=== PATIENT | male | born 1980 | race Native Hawaiian/Other Pacific Islander ===

== ENCOUNTER 2017-02-25 23:45 | Inpatient (IN) | payer OTHER ==
[2017-02-26] MEDS ORDERED: ONDANSETRON 4 MG/2ML 2 ML VIAL ONE (00:42)
[2017-02-26] MEDS ORDERED: ACETAMINOPHEN 500 MG TABLET ONE (00:42)
[2017-02-26] MEDS ORDERED: SODIUM CHLORIDE 0.9% 1,000 ML ONE ×2 (00:42→02:49)
[2017-02-26 01:01] LABS: ABSOLUTE NEUTROPHIL COUNT 19.2 K/mm3 (1.8-7.7); BASO % 0.1 % (0.2-1.0); EOS # 0.3 (0.0-0.5); EOS % 1.3 % (0.9-2.9); HEMATOCRIT 31.3 % (32.0-52.0); HEMOGLOBIN 10.2 gm/l (14.0-18.0); IMM NEUT # 0.1 K/mm3 (0-0.2); IMM NEUT% 0.5 % (0-1); LYMPH # 1.1 (1.0-4.8); MEAN CELL VOLUME 86.2 fl (80.0-94.0); MEAN CORPUSCULAR HEMOGLOBIN 28.1 pg (27.0-31.0); MEAN CORPUSCULAR HGB CONC 32.6 g/dl (33.0-37.0); MEAN PLATELET VOLUME 9.7 fl (7.4-10.4); MONO # 0.9 (0.0-0.8); MONO % 4.3 % (4-12); NEUT % 88.8 % (43-75); PLATELET COUNT 364 K/mm3 (130-400); RED CELL DISTRIBUTION WIDTH 13.2 % (11.5-14.5)
[2017-02-26 01:23] LABS: ALB/GLOB RATIO 0.6 (>1.0); ALBUMIN 2.9 gm/dL (3.5-5.7); CALCIUM 6.2 mg/dL (8.6-10.3); MAGNESIUM 1.2 mg/dL (1.9-2.7)
[2017-02-26 01:45] LABS: BAND 3 % (0-10); BASOPHIL 0 % (0-1); EOSINOPHIL 0 % (1-3); LYMPHOCYTE 4 % (15-45); MONOCYTE 2 % (4-12); NEUTROPHILS 91 % (43-75); PLATELET ESTIMATE NORMAL (NORMAL); TOTAL CELLS COUNTED 100
[2017-02-26 03:10] LABS: SPECIFIC GRAVITY 1.015 (1.001-1.030); URINE BILIRUBIN NEGATIVE (NEGATIVE); URINE BLOOD 2+ (NEGATIVE); URINE GLUCOSE (UA) 2+ (NEGATIVE); URINE LEUKOCYTE ESTERASE NEGATIVE (NEGATIVE); URINE NITRITE NEGATIVE (NEGATIVE); URINE PROTEIN 2+ (NEGATIVE); URINE UROBILINOGEN NORMAL (0-1 mg/dl)
[2017-02-26 03:11] LABS: URINE APPEARANCE HAZY; URINE COLOR LIGHT YELLOW
[2017-02-26 03:20] LABS: URINE BACTERIA 0; URINE CASTS 1-3 HYALINE /lpf
[2017-02-26] MEDS ORDERED: SODIUM CHLORIDE 0.9% 100 ML IV ONE (03:48)
[2017-02-26] MEDS ORDERED: CEFTRIAXONE SODIUM 1 G VIAL ONE (03:48)
[2017-02-26] MEDS: MAGNESIUM SULFATE 1 G/100 ML 100 ML IV SCH ×2 (04:55→06:02)
[2017-02-26] MEDS ORDERED: SODIUM CHLORIDE 0.9% FLUSH 10 ML ONE ×4 (04:57→06:52)
[2017-02-26] MEDS ORDERED: IV START KIT ONE (05:04)
[2017-02-26] MEDS ORDERED: BLISTEX LIPSTICK 1 EACH TP PRN (06:53)
[2017-02-26] MEDS ORDERED: BISACODYL 10 MG SUP PR PRN (06:53)
[2017-02-26] MEDS ORDERED: BISACODYL 5 MG TABLET.EC PO PRN (06:53)
[2017-02-26] MEDS ORDERED: MAGNESIUM HYDROXIDE 30 ML UDCUP PO PRN (06:53)
[2017-02-26] MEDS ORDERED: MENTHOL/CETYLPYRD 1 EACH LOZENGE PO PRN (06:53)
[2017-02-26] MEDS ORDERED: SODIUM CHLORIDE 0.9% 100 ML IV PRN (06:53)
--- NOTE | 2017-02-26 08:36 | RAD ---
02/26/2017 8:30 AM CHEST - 2 VIEWS History: Weakness Comparison: 07/22/2016 Findings: Two views of the chest are obtained. The lungs are clear with out effusion or pneumothorax. The cardiomediastinal silhouette is unremarkable.. The osseous structures are intact.. IMPRESSION: No acute intrathoracic process.
[2017-02-26] MEDS ORDERED: Magnesium Oxide 400 MG TABLET PO SCH (09:00)
[2017-02-26] MEDS: METOPROLOL TARTRATE 25 MG TABLET PO SCH ×2 (09:20→20:04)
[2017-02-26] MEDS: CALCIUM CARBONATE 500 MG TAB.CHEW PO SCH ×3 (09:20→20:04)
[2017-02-26] MEDS: AMLODIPINE BESYLATE 5 MG TABLET PO SCH (09:20)
[2017-02-26] MEDS: DOCUSATE SODIUM 100 MG CAPSULE PO SCH ×2 (09:20→20:05)
[2017-02-26] MEDS: ENOXAPARIN SODIUM 30 MG/0.3 ML SYRINGE SUB-Q SCH (09:21)
[2017-02-26] MEDS: INSULIN ASPART (DOSE) 100 UNITS/1 ML SUB-Q PRN ×2 (09:54→17:22)
--- NOTE | 2017-02-26 12:04 | HP ---
BENJAMIN GARCIA [id number] HISTORY OF PRESENT ILLNESS: The patient is a 36-year-old male with a history of diabetes, hypertension, and toe amputations who has reported feeling weaker over the last 7 days. He has noted feeling dizzy. He has not had vomiting. He has had no falls. He had actually talked with Dr. Holcomb, about possible need for dialysis, but had not wanted to pursue this. On further evaluation, he had a creatinine of 4.4 on 12/30/2016, and a creatinine of 4.6 on 02/06/2017. He denies fevers, or chills only that he is feeling somewhat dizzy. PAST MEDICAL HISTORY: Remarkable for: 1. Diabetes type 2 on insulin for the last 8 years. He has previous documentation of poor control with A1c in the region. 2. History of diabetic foot ulcers with amputation. 3. Morbid obesity. 4. Hypertension. 5. Chronic kidney disease. 6. He has had previous documentation of hypothyroidism, but is not on thyroid replacement at this time. PAST SURGICAL HISTORY: Remarkable for: 1. Transmetatarsal amputations. 2. Foot ulcer debridement. ALLERGIES: NO KNOWN DRUG ALLERGIES. MEDICATIONS: Listed as: 1. Lantus 80 units by mouth daily. 2. Lisinopril 20 mg daily. It is not clear if he has stopped this medicine. 3. Simvastatin 20 mg daily. 4. Metformin had been stopped recently. 5. He uses insulin aspart 8 units three times a day with meals. SOCIAL HISTORY: Unemployed. He lives in [place] with his sister. He has a history of smoking, but quit after high school, and reports no alcohol. He goes to [employer] in [place]. He is not . He speaks Chuukese as his primary language. HOBBIES: Include TV, games, exercise, and pets. FAMILY HISTORY: Father in his 60s. Mom in her 70s has diabetes. REVIEW OF SYSTEMS: HEENT: Eyes: Vision is not good. Ears okay. Nose okay. Mouth is okay. Some teeth are missing. Neck: No complaints. Lungs: Breathing is ok. Cardiac: No chest pain. Gastrointestinal: Stomach is ok. No vomiting. Genitourinary: No urinary complaints. Extremities: Legs are ok, although he has numbness. He had talked to the kidney doctor about dialysis last week. PHYSICAL EXAMINATION: GENERAL: Nontoxic male, answers appropriately and does well for Mauritian being his second language. VITAL SIGNS: Blood pressure is 181/111. Pulse is 95. Respirations are 18. Oxygen saturation is 99% on room air. Temperature is 97.8. Other blood pressures taken in the emergency room show 156/87, and 173/107. HEENT: Head is normocephalic, atraumatic. Eyes are unremarkable. Externally ears are normal. Nose is unremarkable. Mouth: Fair dentition. NECK: Obese, but no masses are felt. LUNGS: Clear to auscultation bilaterally. HEART: Regular rate and rhythm. ABDOMEN: Obese, nontender and nondistended. Bowel sounds are normal. No rebound and no guarding. GENITOURINARY: Exam is grossly unremarkable. EXTREMITIES: Legs trace edema bilaterally. Fifth toe amputation on the left at the transmetatarsal and toes two through four on the right foot are amputated. Approximately 1 cm stage II to stage III ulcer is present on the right distal foot near the remnant of the second metatarsal head. Onychomycosis is noted. Neuropathy is noted. LABORATORY: White count is 21.6, hemoglobin 10.2, and platelets 364. SED rate is 117. Lactate is 0.4. Sodium is 132, potassium 4.7, chloride 104, bicarbonate 17, BUN 63, creatinine 4.7, glucose 192, and calcium 6.2. Magnesium is 1.2. AST is 10, ALT 9, and alkaline phosphatase 74. CK is 498. BNP is 157. Troponin is 0.03. Albumin is 2.9. Globulin is 5. Lipase is 23. Urinalysis: Specific gravity of 1.015, 2+ protein, 2+ glucose, 3 to 5 red cells, 2 to 4 white cells, 3 to 5 epithelial cells, 1 to 3 highland cast. Influenza testing is negative. DIAGNOSTIC IMAGING: Chest x-ray on preliminary review is unremarkable, but low penetration due to habitus. ASSESSMENT/PLAN: 1. Continued worsening of chronic kidney disease attributed to hypertension and diabetes. Creatinine was 2.2 on 06/24/2016, 4.4 on 12/30/2016, and 4.6 on 02/06/2017, and now 4.7 on 02/25/2017. We will anticipate holding the lisinopril if this has not already been done. Patient was given some IV fluids in the emergency room reported to be helpful for his symptoms of lightheadedness. If he does not have significant improvement, we will need to follow up with nephrology and Dr. Holcomb should be back tomorrow and we will discuss this further. We will also be checking parathyroid hormone level, and phosphorus level. 2. Diabetes mellitus type 2 with chcf insulin use not controlled with associated neuropathy, and nephropathy. His last A1c was 12.5 in May 2016. We will continue current regimen and anticipate recheck of the A1c. Do not anticipate using metformin. 3. Hypertension. Anticipate hold lisinopril and with elevated creatinine would not be a candidate angiotensin receptor obdulio either. Anticipate use of amlodipine, and metoprolol for blood pressure control. In discussion with Dr. Katey Cooley covering for Dr. Holcomb recommended a systolic blood pressure goal of 130 to 160. 4. For hypocalcemia with hypomagnesemia, we will be checking parathyroid hormone level and vitamin D level as he was given magnesium already and anticipate calcium supplementation and check TSH. Patient will likely require Calcitrol, or other supplementation, but we will see how patient's results are from vitamin D level and parathyroid hormone level and review with nephrology tomorrow. 5. History of iron deficiency. 6. Anemia attributed primary chronic kidney disease and chronic disease. 7. Markedly elevated SED rate. 8. Prior history of diabetic foot ulcer, although foot appearance is not particularly remarkable at this time, could consider x-ray versus surgical consult, but patient does not appear to have sepsis. Patient is not felt to have sepsis at this time. He did have blood cultures drawn, but we will not continue the antibiotics that were initially given in the emergency room. 9. Weakness attributed to chronic kidney disease and electrolyte disturbance. 10. With his elevated CPK we will consider effective simvastatin and in the setting of severe chronic kidney disease, we will be holding this medicine. 11. Venous thrombosis prophylaxis. Anticipate renal dose enoxaparin. 12. Code status. Presumed FULL. EVELIN/sven cc: MD Smita Crystal, nurse practitioner
[2017-02-26 17:06] VITALS: BMI 48.1
[2017-02-26] MEDS ORDERED: INSULIN GLARGINE (DOSE) 100 UNITS/ML UNIT SUB-Q SCH (20:00)
[2017-02-27 04:57] LABS: THYROID STIMULATING HORMONE 3.49 uIU/ml (0.34-5.60)
[2017-02-27 05:51] LABS: ABSOLUTE NEUTROPHIL COUNT 10.5 K/mm3 (1.8-7.7); BASO % 0.3 % (0.2-1.0); EOS # 0.7 (0.0-0.5); EOS % 4.3 % (0.9-2.9); HEMATOCRIT 28.3 % (32.0-52.0); IMM NEUT # 0.1 K/mm3 (0-0.2); IMM NEUT% 0.5 % (0-1); LYMPH # 2.6 (1.0-4.8); LYMPH % 17.1 % (15-45); MEAN CELL VOLUME 87.6 fl (80.0-94.0); MEAN CORPUSCULAR HEMOGLOBIN 27.9 pg (27.0-31.0); MEAN CORPUSCULAR HGB CONC 31.8 g/dl (33.0-37.0); MONO # 1.2 (0.0-0.8); MONO % 7.8 % (4-12); PLATELET COUNT 322 K/mm3 (130-400); RED CELL DISTRIBUTION WIDTH 13.4 % (11.5-14.5)
[2017-02-27 06:02] LABS: CALCIUM 6.2 mg/dL (8.6-10.3); MAGNESIUM 1.6 mg/dL (1.9-2.7)
[2017-02-27] MEDS: METOPROLOL TARTRATE 25 MG TABLET PO SCH (09:30)
[2017-02-27] MEDS: DOCUSATE SODIUM 100 MG CAPSULE PO SCH (09:30)
[2017-02-27] MEDS: ENOXAPARIN SODIUM 30 MG/0.3 ML SYRINGE SUB-Q SCH (09:30)
[2017-02-27] MEDS: AMLODIPINE BESYLATE 5 MG TABLET PO SCH (09:31)
[2017-02-27] MEDS: CALCIUM CARBONATE 500 MG TAB.CHEW PO SCH ×2 (09:31→14:45)
[2017-02-27 09:42] LABS: A1C-GLYCOHEMOGLOBIN 0.7 g/dl; HEMOGLOBIN-GLYCO 8.6 g/dl
--- NOTE | 2017-02-27 10:46 | PDOC43 ---
- Subjective Chief Complaint: Weakness Patient reports feeling well, took a shower, no complaints. - Objective Vital Signs Temperature 97.8 F 02/27/17 07:00 Pulse Rate 84 02/27/17 07:00 Respiratory Rate 20 02/27/17 08:06 Blood Pressure 144/74 02/27/17 07:00 O2 Saturation by Pulse Oximetry 97 02/27/17 07:00 Oxygen Delivery Method Room Air Oxygen Flow Rate 0 Vital Signs Last 12 Hours Temp Pulse Resp BP Pulse Ox 02/27/17 08:06 20 02/27/17 07:00 97.8 F 84 20 144/74 97 02/27/17 04:00 18 02/27/17 03:40 98.0 F 88 18 138/95 100 02/26/17 23:00 97.6 F 84 20 150/96 99 Intake and Output 02/25/17 02/26/17 02/27/17 23:59 23:59 23:59 Intake Total 1454 1150 Output Total 1100 1550 Balance 354 -400 General: Alert, Cooperative, No Acute Distress Lungs: Clear to Auscultation Bilaterally, Normal Air Movement Cardiovascular: Regular Rate and Rhythm Abdomen: Soft, Normal Bowel Sounds, Non-Distended, No Tenderness Extremities: Other (Superficial ulcer on R foot distally near 2nd metatarsal.), No Edema Neurological: Normal Speech Psych/Mental Status: Other (appears at baseline.) Laboratory 02/27/17 05:15 02/27/17 05:15 02/27/17 02/26/17 02/26/17 05:15 19:32 17:18 RBC 3.23 L MCHC 31.8 L BUN 57 H Estimated GFR 14 L POC Capillary Glucose 170 H 166 H Hemoglobin A1c Calcium 6.2 L Magnesium 1.6 L Parathyroid Hormone 02/26/17 07:25 RBC MCHC BUN Estimated GFR POC Capillary Glucose Hemoglobin A1c 9.2 H Calcium Magnesium Parathyroid Hormone 125.2 H Laboratory Tests 02/26/17 07:25 Vitamin D 25-Hydroxy 7 TSH 3.49 Parathyroid Hormone 125.2 H Laboratory Tests 02/26/17 07:25 Phosphorus 4.7 Current Medications: Current meds reviewed in EMR. Active Medications Amlodipine Besylate (Norvasc) 5 mg PO QAM [facility] Last Admin: 02/27/17 09:31 Dose: 5 mg Benzocaine/Menthol (Cepacol) 1 each PO PRN PRN PRN Reason: Sore Throat Bisacodyl (Dulcolax) 10 mg LA DAILY PRN PRN Reason: Constipation Bisacodyl (Dulcolax) 5 mg PO DAILY PRN PRN Reason: Constipation Calcium Carbonate/Glycine (Tums) 500 mg PO TID [facility] Last Admin: 02/27/17 09:31 Dose: 500 mg Docusate Sodium (Colace) 100 mg PO BID [facility] Last Admin: 02/27/17 09:30 Dose: Not Given Enoxaparin Sodium (Lovenox) 30 mg SUB-Q DAILY [facility] Last Admin: 02/27/17 09:30 Dose: 30 mg Sodium Chloride (Sodium Chloride 0.9%) 100 mls @ 25 mls/hr IV PRN PRN PRN Reason: Flush Insulin Aspart (Novolog (Dose)) 0 units SUB-Q WM/BEDTIME PRN; Protocol PRN Reason: Blood Sugar > Last Admin: 02/26/17 17:22 Dose: 3 units Insulin Glargine (Lantus (Dose)) 80 units SUB-Q QPM [facility] Last Admin: 02/26/17 19:42 Dose: 80 units Magnesium Hydroxide (Milk Of Magnesia) 30 ml PO DAILY PRN PRN Reason: Constipation Metoprolol Tartrate (Lopressor) 25 mg PO BID [facility] Last Admin: 02/27/17 09:30 Dose: 25 mg Petrolatum/Paraffin/Mineral Oil (Blistex) 1 each TP PRN PRN PRN Reason: Dry and/or chapped lips Sodium Chloride (Normal Saline 10ml Flush) 10 - 50 ml IV PRN PRN PRN Reason: IV Flush Last Admin: 02/26/17 07:42 Dose: 10 ml Sodium Chloride (Normal Saline 10ml Flush) 10 ml IV Q8HR [facility] Last Admin: 02/27/17 09:31 Dose: 10 ml Sodium Chloride (Normal Saline 10ml Flush) 10 ml IV PRN PRN - Problems: Assessment/Plan (1) CKD (chronic kidney disease) Qualifiers: Chronic kidney disease stage: stage 5 Qualifier Code: (N18.5) Chronic kidney disease, stage 5 Status: SuspectedAssessment/Plan: Patient with Cr 4.8, not improved with holding lisinopril, giving fluids Associated low Ca, Vit D, high PTH due to CKD. Will check with patient and nephrology about rec'd follow up, poss dialysis. (2) Hypocalcemia Status: AcuteAssessment/Plan: Low calcium due to low Vit D due to CKD Consider supplement with calcitriol, will check with Dr Holcomb. (3) Hypomagnesemia Status: AcuteAssessment/Plan: 1.2->1.6 with supplement. Consider further tx, checking with nephrology (4) Type 2 DM with CKD stage 5 and hypertension Status: ChronicAssessment/Plan: BG 180s, continue current regimen for now. Laboratory Tests 02/26/17 07:25 Hemoglobin A1c 9.2 H (5) Osteomyelitis Qualifiers: Osteomyelitis type: unspecified type Osteomyelitis location: foot Laterality: unspecified laterality Qualifier Code: (M86.9) Osteomyelitis, unspecified Status: SuspectedAssessment/Plan: Hx of osteomyelitis; now just has a noninfected appearing ulcer on R foot. Patient does not appear to have acute osteomyelitis evident at this time, but significant hx and marked elevation of ESR. Blood cultures negative at this time. Hope to DC to follow up with podiatry. (6) BMI 45.0-49.9, adult Status: ChronicAssessment/Plan: Playing a role in/complicates care, particularly for diabetes. VTE Prophylaxis: On renal dose enoxaparin Disposition: Will be reviewing with Dr Holcomb regarding outpt vs inpt follow up for CKD. Additional Comments: Spoke with Dr Serrano. At this point, do not have an urgent need for dialysis, so will plan to DC to home and keep outpt follow up appt with nephrology. He recommends Tums 1 g tid, but wouldn't add magnesium or Vit D/calcitriol at this time. Elevated WBC cause not clear. Pt with foot ulcer, but not appearing infected or cellulitic. Other eval - CXR, UA, not sugg of source. May be related to renal status.
[2017-02-27 11:10] VITALS: BP 152/98
[2017-02-27] MEDS: INSULIN ASPART (DOSE) 100 UNITS/1 ML SUB-Q PRN (12:37)
--- NOTE | 2017-02-27 15:35 | DS ---
BENJAMIN GARCIA [id number] DATE OF ADMISSION: February 26, 2017 DATE OF DISCHARGE: February 27, 2017 DISCHARGE DIAGNOSES: Are: 1. Chronic kidney failure approaching stage 5, not responding to fluid administration. 2. Weakness attributed to medication issues in the setting of chronic renal failure. 3. Hypertension. 4. Diabetes mellitus type 2 with A1c of 9.2. 5. Superficial right diabetic foot ulcer in the setting of previous history of osteomyelitis and amputations. 6. Anemia attributed to chronic kidney disease. 7. Hypocalcemia associated with renal insufficiency 25-hydroxy vitamin D level low and parathyroid hormone level elevated. 8. Morbid obesity with a body mass index of 48. 9. History of iron deficiency. 10. Markedly elevated ESR sedimentation rate. REASON FOR ADMISSION: The patient is a 36-year-old male with a history of diabetes, hypertension, and toe amputations who actually had spoken with his jointer machine about starting dialysis the previous week. He had not been interested in this but since then he had a feeling of weakness over the last seven days along with some dizziness, no vomiting, no fevers, no falls. His previous creatinine was 4.4 on December 30, 2016 and 4.6 on February 06, 2017. He came to [facility] Emergency Department and was noted to have a number of lab abnormalities including a white blood cell count of 21.6, hemoglobin 1.02, platelets 364. Sedimentation rate was 117, lactate 0.4. Chemistry profile showed sodium 132, potassium 4.7, bicarbonate 17, BUN 63, creatinine 4.7, glucose 192, calcium 6.2, magnesium 1.2, AST 10, ALT 9, alkaline phosphatase 74, creatinine kinase is 498, BNP 157, troponin 0.03, TSH was 3.49. Patient had some additional labs including 25 hydroxy vitamin D level 7 and a parathyroid hormone level of 125.2 and phosphorus level of 4.7. His albumin was 2.9 to go with his calcium 6.2. Patient received IV fluids in the emergency department and reported feeling better. He also received antibiotic therapy initially with daptomycin and ceftriaxone. Patient's urinalysis showed pH 6.0, urine protein 2+, glucose 2+, negative leukocyte esterase, negative nitrite, 3 to 5 red cells, 2 to 4 white cells, 3 to 5 epithelial cells, 1 to 3 hyaline casts. Influenza testing was negative. Patient had a chest x-ray which was unremarkable. Patient was referred to the hospitalist service for concern about acute kidney injury due to illness. However, on further review, his renal status had actually been quite stable over the previous couple of months. Patient remained afebrile throughout his stay and he was hypertensive on admission at 181/111, but his lisinopril was held and he was given amlodipine and metoprolol with good response fitting into the goal range of a systolic between 130 and 160 for a patient with advanced renal disease. Patient's followup labs showed a sodium 134, potassium 4.1, chloride 110, anion gap 11, BUN 57, creatinine 4.8, glucose between 70 and 170 over the previous 24 hours. His followup calcium was still low at 6.2 and his magnesium was 1.6 after administration of IV magnesium. Call was made to nephrology again to review status and reviewed that the patient was feeling stable, had taken a shower and was feeling well and in the absence of any marked electrolytes abnormalities there was not an urgent need for dialysis. He is anticipated to be discharged to home. DISCHARGE FOLLOWUP: Followup with the lab for recheck March 08, 2017 and an appointment with Tony Osei, March 10, 2017 at 4:00 p.m. regarding kidney status. He also has an appointment with Dr. Raphael Mcdaniels on March 07, 2017 at 2:15 p.m. to follow up on his foot ulcer. DISCHARGE MEDICATIONS: Are anticipated to be: 1. Amlodipine 5 mg orally daily in the morning. 2. Calcium carbonate 1000 mg orally three times daily. 3. NovoLog insulin per sliding scale with meals and at bedtime. 4. Lantus 80 units subcutaneous daily in the evening which is the same as before. 5. Metoprolol XL 50 mg orally daily although he may have a substitute of tartrate 25 mg orally twice daily if his insurance does not allow him to get the succinate. 6. He will be asked to stay off the metformin and lisinopril which he may have already been doing but it was not clear from admission if he was doing this. 7. He is asked to stay off the simvastatin as his renal status can be contributing to weakness and muscle aches, and if feeling markedly worse, would consider having him go to [facility] due to the availability of dialysis there. Cc: Norah Holcomb M.D. Ruben Vines. Susanne Martell N.P.
== END 2017-02-27 18:20 | disposition home or self-care (01) | DRG 683 ==
LOC: ED 23:45 → MS 02-26 03:06
PROVIDERS: ADMIT Family Medicine; ATTEND Family Medicine
DX: I12.9 Hypertensive chronic kidney disease with stage 1 through stage 4 chronic kidney disease, or unspecified chronic kidney disease (principal); N18.5 Chronic kidney disease, stage 5; Z68.42 Body mass index [BMI] 45.0-49.9, adult; E66.01 Morbid (severe) obesity due to excess calories; E11.22 Type 2 diabetes mellitus with diabetic chronic kidney disease; Z79.4 Long term (current) use of insulin; Z79.84 Long term (current) use of oral hypoglycemic drugs; E61.1 Iron deficiency

== ENCOUNTER 2017-03-27 21:32 | Inpatient (IN) | payer OTHER ==
[2017-03-27 23:44] LABS: ABSOLUTE NEUTROPHIL COUNT 22.3 K/mm3 (1.8-7.7); BASO # 0.1 K/mm3 (0.0-0.2); BASO % 0.3 % (0.2-1.0); EOS # 0.4 (0.0-0.5); EOS % 1.5 % (0.9-2.9); HEMATOCRIT 30.4 % (32.0-52.0); HEMOGLOBIN 10.1 gm/l (14.0-18.0); IMM NEUT # 0.2 K/mm3 (0-0.2); IMM NEUT% 0.7 % (0-1); LYMPH # 1.7 (1.0-4.8); LYMPH % 6.4 % (15-45); MEAN CELL VOLUME 84.4 fl (80.0-94.0); MEAN CORPUSCULAR HEMOGLOBIN 28.1 pg (27.0-31.0); MEAN CORPUSCULAR HGB CONC 33.2 g/dl (33.0-37.0); MEAN PLATELET VOLUME 9.8 fl (7.4-10.4); MONO # 1.6 (0.0-0.8); MONO % 5.9 % (4-12); NEUT % 85.2 % (43-75); PLATELET COUNT 329 K/mm3 (130-400); RED CELL DISTRIBUTION WIDTH 12.6 % (11.5-14.5)
[2017-03-27 23:58] LABS: CALCIUM 7.2 mg/dL (8.6-10.3)
[2017-03-28 00:22] LABS: BAND 1 % (0-10); BASOPHIL 1 % (0-1); EOSINOPHIL 2 % (1-3); LYMPHOCYTE 6 % (15-45); MONOCYTE 3 % (4-12); NEUTROPHILS 87 % (43-75); PLATELET ESTIMATE NORMAL (NORMAL); TOTAL CELLS COUNTED 100
[2017-03-28] MEDS ORDERED: INSULIN REGULAR HUMAN (DOSE) 100 UNITS/1 ML ONE (01:14)
[2017-03-28] MEDS ORDERED: CLINDAMYCIN PHOSPHATE 600 MG/4 ML VIAL ONE (01:16)
[2017-03-28] MEDS ORDERED: INSULIN GLARGINE (DOSE) 100 UNITS/ML UNIT ONE (01:23)
[2017-03-28] MEDS ORDERED: INSULIN ASPART (DOSE) 100 UNITS/1 ML ONE (01:24)
[2017-03-28] MEDS ORDERED: MENTHOL/CETYLPYRD 1 EACH LOZENGE PO PRN (02:24)
[2017-03-28] MEDS ORDERED: ACETAMINOPHEN 325 MG TABLET PO PRN (02:24)
[2017-03-28] MEDS ORDERED: SODIUM CHLORIDE 0.9% 100 ML IV PRN (02:24)
[2017-03-28] MEDS ORDERED: MAGNESIUM HYDROXIDE 30 ML UDCUP PO PRN (02:24)
[2017-03-28] MEDS ORDERED: BISACODYL 5 MG TABLET.EC PO PRN (02:24)
[2017-03-28] MEDS ORDERED: BISACODYL 10 MG SUP PR PRN (02:24)
[2017-03-28] MEDS ORDERED: BLISTEX LIPSTICK 1 EACH TP PRN (02:24)
[2017-03-28] MEDS ORDERED: SODIUM CHLORIDE 0.9% IV SCH (03:00)
[2017-03-28] MEDS ORDERED: TAZOBACTAM IV SCH (03:00)
[2017-03-28] MEDS ORDERED: PIPERACILLIN SODIUM IV SCH (03:00)
[2017-03-28 03:09] VITALS: BMI 35.9
[2017-03-28] MEDS ORDERED: TAZOBACTAM IV ONE (03:40)
[2017-03-28] MEDS ORDERED: PIPERACILLIN SODIUM IV ONE (03:40)
--- NOTE | 2017-03-28 07:50 | CT ---
FACIAL BONES W/O CON COMPARISON: None. HISTORY: Insulin-dependent diabetic with dental disease and right-sided facial swelling for one day. Technique: The facial bones were imaged with a [employer] [address]. An automated dose reduction technique was used to minimize patient radiation dose. Dose information: CTDIvol (mGy) 28.80 DLP(mGycm) 576.40 FINDINGS: Bones: Normal. Teeth: Extensive chronic dental disease. No fracture. No bone destruction of the mandible or maxilla. Temporomandibular joints: Normal. Paranasal sinuses: Mild mucosal thickening in both maxillary sinuses. Nasal passages: Septal deviation to the right of midline. Orbits: Right orbit superficial soft tissue swelling. Normal left orbit. Skull base: Normal. Upper cervical spine: Ossification of the posterior longitudinal ligament at the C3 and 4 levels causing narrowing of the spinal canal. Tongue: Normal. Salivary glands: Normal. Soft tissues: Marked edema in the soft tissues of the right side of the face. IMPRESSION: 1. Marked cellulitis, right side of the face and superficial right orbit. 2. Extensive chronic dental disease. 3. Mild chronic mucosal thickening in both x-ray sinuses. 4. Incidentally noted septal deviation to the right of midline, and ossification of the posterior longitudinal ligament at the C3 and C4 levels causing narrowing of the spinal canal. This process is incompletely imaged. Preliminary report by [facility] radiologist Chioma Roque MD 03/28/2017 at 01:00
[2017-03-28] MEDS: INSULIN GLARGINE (DOSE) 100 UNITS/ML UNIT SUB-Q SCH (08:23)
[2017-03-28] MEDS: HYDROCODONE/ACETAMINOPHEN 5/325MG TABLET PO PRN ×4 (08:24→22:52)
[2017-03-28] MEDS: INSULIN ASPART (DOSE) 100 UNITS/1 ML SUB-Q PRN ×2 (08:24→13:40)
[2017-03-28] MEDS ORDERED: AMLODIPINE BESYLATE 5 MG TABLET PO SCH (09:00)
[2017-03-28] MEDS: CLINDAMYCIN 600 MG PREMIX 600 MG in Premix (D5W) 50 ml 1 EACH IV SCH ×2 (10:16→17:33)
[2017-03-28] MEDS: DOCUSATE SODIUM 100 MG CAPSULE PO SCH ×2 (10:16→20:19)
[2017-03-28] MEDS: ENOXAPARIN SODIUM 30 MG/0.3 ML SYRINGE SUB-Q SCH (10:18)
[2017-03-28] MEDS: METOPROLOL SUCCINATE (XL) 50 MG TAB.PRT.SR PO SCH (10:20)
--- NOTE | 2017-03-28 10:55 | HP ---
Dawood Cohen [id number] DATE OF ADMISSION: 03/28/2017 CHIEF COMPLAINT: Facial swelling. HISTORY OF PRESENT ILLNESS: The patient is a 36-year-old diabetic male with end-stage renal disease who presented with a two day history of right facial swelling associated with chills. He reports that he also has had swelling and purulent drainage from a boil in the right groin area and that started about three days ago. He reports chills, but is not documented fever. REVIEW OF SYSTEMS: Negative for any visual disturbance or double vision. He denies any trismus or oropharyngeal pain. He denies cough, dyspnea, wheezing, chest pain, shortness of breath, or edema. He denies any nausea, vomiting, abdominal pain, diarrhea, or constipation. He denies any headaches, fainting, blackouts, or seizures. He does complain of generalized pruritus. He denies any urinary complaints. His review of systems is otherwise negative. PAST MEDICAL HISTORY: Significant for hospitalization here at [facility] just last month in February for weakness and uncontrolled hypertension, poorly controlled diabetes. He had his medications adjusted. He was also found to be hypocalcemic with a vitamin D level at that time. It is unclear if he has been replacing his vitamin D or not. He has had other hospitalizations for sepsis and diabetic foot infections. He has had a history of diabetes since 2008 which has had long history of poor control. He has had a history of chronic essential hypertension. He has had worsening diabetic neuropathy which has progressed to stage V kidney failure in the past year followed by Dr. Holcomb with plans to initiate dialysis at the patient's discretion. He has had a history of morbid obesity in the past , now I believe he is more in the obese range no longer morbid. He has had a previous documented history of hypothyroidism, but is not on thyroid replacement and had a TSH checked in February which was normal. He had a vitamin D deficiency noted in February. 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 He has also had debridement of both feet for ulcers in July 2014 and a right foot ulcer debrided in February 2015. He has had no abdominal surgeries. ALLERGIES: He has no known drug allergies. CURRENT MEDICATIONS: Unknown and need to be confirmed at the [facility] in [place]. At his discharge in February he was takin. Toprol XL 50 mg daily. 2. Lantus insulin 80 units every day. 3. NovoLog insulin using a correction scale with 8 units prandial and additional insulin as needed. 4. Tums 1000 mg three times daily. 5. Norvasc 5 mg every morning. FAMILY HISTORY: Significant for mother and father with diabetes who both of complications of their diabetes. SOCIAL HISTORY: He has been unemployed. He lives in [place] with his sister. He smoked briefly as a teenager, but no longer smokes. 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 He denies any significant alcohol use or illicit drug use. His primary care provider is Dr. Natalia Orozco at the [facility]. His laborer/key man is Dr. Holcomb. PHYSICAL EXAMINATION: VITAL SIGNS: Show a temperature of 98.7, pulse 111, blood pressure 173/108, respirations 15, oxygen saturation are 100% on room air. Weight and body mass index, weight 137.2 kg, body mass index is 35.9. GENERAL: This is an obese male in no acute distress. HEENT: Shows marked swelling of the right facial region with increased warmth and erythema. He is able to open the right eye despite the swelling and extraocular movements appear to be intact. I do not see any oral lesions. He does have swelling extending from the maxilla down to the jaw. No trismus is present. There is marked induration of the area, but no drainage and no fluctuance at this point. NECK: Shows some minimal adenopathy on the right. LUNGS: Clear to auscultation bilaterally. CARDIOVASCULAR: Reveals a regular rate and rhythm without a murmur. ABDOMEN: Soft, nontender, nondistended with positive bowel sounds. EXTREMITIES: No peripheral edema. Dorsalis pedis pulses are markedly diminished at both feet. On the right foot there is small diabetic foot ulcer measuring about 1 cm in size without significant drainage or inflammation which appears to be full thickness, but no bone is exposed and no tracks appear. He has well healed amputation sites on both feet. SKIN: Shows generalized xerosis with multiple areas of excoriation and some scattered pustules. He also has a large indurated abscess in the right groin area which is indurated and tender, palpates to about 6 x 8 cm in size with some purulent drainage which was cultured. There is a central area of early ulceration, but no significant fluctuance, no scrotal edema. Erythema seems localized to the abscess site. I did express some of the purulent drainage and obtained a culture. DIAGNOSTIC IMAGING STUDIES: Included a CT of the facial soft tissue structures. I do not have that report and I am having computer difficulties, unable to look at the report or the images either. We will review with radiology later. LABORATORY STUDIES: Shows a CBC with a white count of 26.2, hemoglobin of 10.1, and a platelet count of 329,000. Differential shows 87% neutrophils, 1% bands, 6% lymphocytes. Chemistry profile shows sodium 126, potassium 4.3, carbon dioxide 16, BUN 65, creatinine 5.4, calcium 7.2. ASSESSMENT: Patient has a facial cellulitis with phlegmon/ersipelas. He also has an abscess with purulent drainage in the right groin region. He has diabetes complicated by detention insulin use and advanced diabetic nephropathy. He has chronic stage V kidney disease and chronic essential hypertension with poor control and obesity. He is going to be admitted to the med/surg unit and will be treated with clindamycin and renally adjusted Zosyn. I did culture the right groin region. At this point the right facial region is not draining and shows no area of amendable to culture. Consider surgical consultation for drainage of the abscess in the right groin and possibly repeat imaging of the right face if it is not improving. He will need to resume his usual diabetic medications and more aggressive hypertensive control. Consider transfer if he develops worsening renal function or is not responding to therapy. Venous thromboembolism risk is moderate and prophylaxis has been prescribed in the form of renally adjusted Lovenox. Further treatment and recommendations will depend on his hospital course. JOB: [id number] CC: Dr. Aicha Orozco at the [facility]
[2017-03-28] MEDS: TAZOBACTAM IV SCH ×2 (10:57→19:44)
[2017-03-28] MEDS: NS 0.9% IV SCH ×2 (10:57→19:44)
[2017-03-28] MEDS: PIPERACILLIN SODIUM IV SCH ×2 (10:57→19:44)
[2017-03-28] MEDS ORDERED: DIPHENHYDRAMINE HCL 25 MG CAPSULE PO PRN (11:51)
[2017-03-28] MEDS ORDERED: LIDOCAINE 1% (PRES FREE) 5 ML VIAL PF PRN (13:22)
[2017-03-28] MEDS ORDERED: LORAZEPAM 2 MG/ML 1ML SDV IV PRN (13:22)
[2017-03-28] MEDS: INSULIN ASPART (DOSE) 100 UNITS/1 ML SUB-Q SCH ×2 (13:40→17:51)
[2017-03-29] MEDS: CLINDAMYCIN 600 MG PREMIX 600 MG in Premix (D5W) 50 ml 1 EACH IV SCH ×3 (00:22→16:51)
[2017-03-29] MEDS: NS 0.9% IV SCH ×3 (03:47→19:53)
[2017-03-29] MEDS: PIPERACILLIN SODIUM IV SCH ×3 (03:47→19:53)
[2017-03-29] MEDS: TAZOBACTAM IV SCH ×3 (03:47→19:53)
[2017-03-29 06:09] LABS: ABSOLUTE NEUTROPHIL COUNT 22.6 K/mm3 (1.8-7.7); BASO # 0.1 K/mm3 (0.0-0.2); BASO % 0.3 % (0.2-1.0); EOS # 0.6 (0.0-0.5); EOS % 1.9 % (0.9-2.9); HEMATOCRIT 27.5 % (32.0-52.0); IMM NEUT # 0.2 K/mm3 (0-0.2); IMM NEUT% 0.6 % (0-1); LYMPH # 2.8 (1.0-4.8); LYMPH % 10.1 % (15-45); MEAN CELL VOLUME 86.5 fl (80.0-94.0); MEAN CORPUSCULAR HEMOGLOBIN 28.3 pg (27.0-31.0); MEAN CORPUSCULAR HGB CONC 32.7 g/dl (33.0-37.0); MEAN PLATELET VOLUME 9.8 fl (7.4-10.4); MONO % 7.2 % (4-12); NEUT % 79.9 % (43-75); PLATELET COUNT 347 K/mm3 (130-400); RED CELL DISTRIBUTION WIDTH 12.9 % (11.5-14.5)
[2017-03-29 06:37] LABS: CALCIUM 6.8 mg/dL (8.6-10.3)
[2017-03-29] MEDS: INSULIN GLARGINE (DOSE) 100 UNITS/ML UNIT SUB-Q SCH (07:08)
[2017-03-29 07:29] LABS: BAND 0 % (0-10); BASOPHIL 1 % (0-1); EOSINOPHIL 2 % (1-3); LYMPHOCYTE 15 % (15-45); MONOCYTE 6 % (4-12); NEUTROPHILS 76 % (43-75); PLATELET ESTIMATE NORMAL (NORMAL); TOTAL CELLS COUNTED 100
[2017-03-29] MEDS: HYDROCODONE/ACETAMINOPHEN 5/325MG TABLET PO PRN ×2 (07:46→15:59)
[2017-03-29] MEDS: INSULIN ASPART (DOSE) 100 UNITS/1 ML SUB-Q SCH ×3 (08:36→16:51)
[2017-03-29] MEDS: DOCUSATE SODIUM 100 MG CAPSULE PO SCH ×2 (08:36→20:20)
[2017-03-29] MEDS: ENOXAPARIN SODIUM 30 MG/0.3 ML SYRINGE SUB-Q SCH (08:36)
[2017-03-29] MEDS: AMLODIPINE BESYLATE 5 MG TABLET PO SCH (08:37)
[2017-03-29] MEDS: METOPROLOL SUCCINATE (XL) 50 MG TAB.PRT.SR PO SCH (08:37)
--- NOTE | 2017-03-29 12:31 | PDOC43 ---
- Subjective Chief Complaint: facial erysipelas, groin abscess Patient reports face feeling a little better, groin a little better, but still sore. No new c/o. Eating some lunch. - Objective Vital Signs Temperature 98.2 F 03/29/17 07:39 Pulse Rate 105 03/29/17 07:39 Respiratory Rate 16 03/29/17 07:39 Blood Pressure 141/98 03/29/17 07:39 O2 Saturation by Pulse Oximetry 99 03/29/17 07:39 Oxygen Delivery Method Room Air Oxygen Flow Rate 0 Vital Signs Last 12 Hours Temp Pulse Resp BP Pulse Ox 03/29/17 07:39 98.2 F 105 16 141/98 99 03/29/17 03:25 98.6 F 93 18 136/84 98 03/29/17 02:00 18 Intake and Output 03/27/17 03/28/17 03/29/17 23:59 23:59 23:59 Intake Total 748 500 Output Total 600 350 Balance 148 150 General: Alert, Other (at ease.) HEENT: Other (R cheek with firm area/indurated anteriorly, erythema appears improved. about 5 mm area with a little bleeding noted centrally, but no purulent DC. No proptosis. Lids appear uninvolved.) Lungs: Clear to Auscultation Bilaterally Cardiovascular: Regular Rate and Rhythm Abdomen: Soft, Normal Bowel Sounds Genitourinary: Other (R groin with 5+ cm induration in groin, some DC noted centrally. Not fluctuant, but firm, tender. Redness/streaking not evident currently.) Extremities: Other (Lower extrem with changes from chronic diabetes, but no acute.) Neurological: Normal Speech Psych/Mental Status: Other (uncomfortable, but pleasant) Laboratory 03/29/17 05:30 03/29/17 05:30 03/29/17 03/28/17 03/28/17 05:30 20:53 17:31 RBC 3.18 L MCHC 32.7 L Anion Gap 17 H BUN 70 H Estimated GFR 10 L POC Capillary Glucose 164 H 69 L Calcium 6.8 L 03/28/17 13:33 RBC MCHC Anion Gap BUN Estimated GFR POC Capillary Glucose 190 H Calcium Current Medications: Current meds reviewed in EMR. Active Medications Acetaminophen (Tylenol) 650 mg PO Q6H PRN PRN Reason: Pain or Temperature > 100.5 F Last Admin: 03/28/17 03:16 Dose: 650 mg Acetaminophen/Hydrocodone Bitart ([place] 5/325) 1 - 2 tab PO Q4H PRN PRN Reason: Pain Last Admin: 03/29/17 07:46 Dose: 2 tab Amlodipine Besylate (Norvasc) 5 mg PO QAM [facility] Last Admin: 03/29/17 08:37 Dose: 5 mg Benzocaine/Menthol (Cepacol) 1 each PO PRN PRN PRN Reason: Sore Throat Bisacodyl (Dulcolax) 10 mg SC DAILY PRN PRN Reason: Constipation Bisacodyl (Dulcolax) 5 mg PO DAILY PRN PRN Reason: Constipation Diphenhydramine HCl (Benadryl) 25 mg PO Q4H PRN PRN Reason: Itching Last Admin: 03/28/17 12:10 Dose: 25 mg Docusate Sodium (Colace) 100 mg PO BID [facility] Last Admin: 03/29/17 08:36 Dose: 100 mg Enoxaparin Sodium (Lovenox) 30 mg SUB-Q DAILY [facility] Last Admin: 03/29/17 08:36 Dose: 30 mg Clindamycin HCl/Dextrose 600 (mg/ Premix (D5W) 50 ml) 50 mls @ 150 mls/hr IV Q8H [facility] Last Admin: 03/29/17 08:36 Dose: 150 mls/hr Sodium Chloride (Sodium Chloride 0.9%) 100 mls @ 25 mls/hr IV PRN PRN PRN Reason: Flush Last Admin: 03/28/17 03:51 Dose: 25 mls/hr Piperacillin Sod/Tazobactam Sod 2.25 g/ NS 0.9% (MINI-BAG PLUS) 50 mls @ 100 mls/hr IV Q8H [facility] Stop: 04/02/17 02:59 Last Admin: 03/29/17 11:33 Dose: 100 mls/hr Insulin Aspart (Novolog (Dose)) 0 units SUB-Q WM/BEDTIME PRN; Protocol PRN Reason: hyperglycemia Last Admin: 03/28/17 13:40 Dose: 4 units Insulin Aspart (Novolog (Dose)) 8 units SUB-Q TIDWM [facility] Last Admin: 05/03/17 08:36 Dose: 8 units Insulin Glargine (Lantus (Dose)) 80 units SUB-Q Q24H [facility] Last Admin: 03/29/17 07:08 Dose: 80 units Lidocaine HCl (Lidocaine 1% (Pres Free)) 2 - 5 ml PF X1 PRN PRN Reason: Pain from PICC line placement Lorazepam (Ativan) 0.5 - 1 mg IV X1 PRN PRN Reason: Anxiety during PICC Placement Magnesium Hydroxide (Milk Of Magnesia) 30 ml PO DAILY PRN PRN Reason: Constipation Metoprolol Succinate (Toprol Xl) 50 mg PO DAILY [facility] Last Admin: 03/29/17 08:37 Dose: 50 mg Petrolatum/Paraffin/Mineral Oil (Blistex) 1 each TP PRN PRN PRN Reason: Dry and/or chapped lips Sodium Chloride (Normal Saline 10ml Flush) 10 - 50 ml IV PRN PRN PRN Reason: IV Flush Last Admin: 03/29/17 11:34 Dose: 10 ml Sodium Chloride (Normal Saline 10ml Flush) 10 ml IV Q8HR [facility] Last Admin: 03/29/17 08:39 Dose: 10 ml - Problems: Assessment/Plan (1) Erysipelas Status: AcuteAssessment/Plan: R cheek of face without abscess formation. Cellulitis seen on CT. I&D (location not clear) with GPC in chains and clusters; on Zosyn and Clindamycin. (2) Abscess, groin Status: AcuteAssessment/Plan: with bacterial cellulitis, but not lymphangiitis. Anticipating PICC line placement. Draining I&D (location not clear) with GPC in chains and clusters; on Zosyn and Clindamycin. 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 Check Mg, Phos VTE Prophylaxis: On enoxaparin, renally dosed Disposition: Awaiting culture results. Following up on BMP to reassess renal status. Additional Comments: Spoke with sister Francisco at [phone], no further questions at this time.
[2017-03-29 12:34] LABS: MAGNESIUM 1.7 mg/dL (1.9-2.7)
[2017-03-30] MEDS: CLINDAMYCIN 600 MG PREMIX 600 MG in Premix (D5W) 50 ml 1 EACH IV SCH ×2 (01:24→08:05)
[2017-03-30] MEDS: PIPERACILLIN SODIUM IV SCH ×2 (02:42→10:45)
[2017-03-30] MEDS: TAZOBACTAM IV SCH ×2 (02:42→10:45)
[2017-03-30] MEDS: NS 0.9% IV SCH ×2 (02:42→10:45)
[2017-03-30 06:13] LABS: ABSOLUTE NEUTROPHIL COUNT 22.7 K/mm3 (1.8-7.7); BASO # 0.1 K/mm3 (0.0-0.2); BASO % 0.3 % (0.2-1.0); EOS # 0.4 (0.0-0.5); EOS % 1.6 % (0.9-2.9); HEMATOCRIT 28.6 % (32.0-52.0); HEMOGLOBIN 9.1 gm/l (14.0-18.0); IMM NEUT # 0.2 K/mm3 (0-0.2); IMM NEUT% 0.9 % (0-1); LYMPH # 1.7 (1.0-4.8); LYMPH % 6.2 % (15-45); MEAN CELL VOLUME 87.5 fl (80.0-94.0); MEAN CORPUSCULAR HEMOGLOBIN 27.8 pg (27.0-31.0); MEAN CORPUSCULAR HGB CONC 31.8 g/dl (33.0-37.0); MONO # 1.8 (0.0-0.8); MONO % 6.6 % (4-12); NEUT % 84.4 % (43-75); PLATELET COUNT 354 K/mm3 (130-400); RED CELL DISTRIBUTION WIDTH 13.1 % (11.5-14.5)
[2017-03-30 06:27] LABS: CALCIUM 6.9 mg/dL (8.6-10.3); MAGNESIUM 1.8 mg/dL (1.9-2.7)
[2017-03-30 07:29] LABS: BAND 1 % (0-10); BASOPHIL 0 % (0-1); EOSINOPHIL 2 % (1-3); LYMPHOCYTE 5 % (15-45); MONOCYTE 7 % (4-12); NEUTROPHILS 85 % (43-75); PLATELET ESTIMATE NORMAL (NORMAL); TOTAL CELLS COUNTED 100
[2017-03-30] MEDS: INSULIN GLARGINE (DOSE) 100 UNITS/ML UNIT SUB-Q SCH (08:03)
[2017-03-30] MEDS: INSULIN ASPART (DOSE) 100 UNITS/1 ML SUB-Q SCH ×2 (08:03→14:10)
[2017-03-30] MEDS: DOCUSATE SODIUM 100 MG CAPSULE PO SCH (08:04)
[2017-03-30] MEDS: ENOXAPARIN SODIUM 30 MG/0.3 ML SYRINGE SUB-Q SCH (08:04)
[2017-03-30] MEDS: HYDROCODONE/ACETAMINOPHEN 5/325MG TABLET PO PRN ×2 (08:04→15:31)
[2017-03-30] MEDS: METOPROLOL SUCCINATE (XL) 50 MG TAB.PRT.SR PO SCH (08:04)
[2017-03-30] MEDS: AMLODIPINE BESYLATE 5 MG TABLET PO SCH (08:04)
--- NOTE | 2017-03-30 08:51 | PDOC43 ---
- Subjective Chief Complaint: facial erysipelas, groin abscess Patient reports face hurts a little bit less. No new c/o. He reports Dr Holcomb had contacted his sister about his kidney function. No new c/o. - Objective Vital Signs Temperature 98.2 F 03/30/17 07:55 Pulse Rate 95 03/30/17 07:55 Respiratory Rate 20 03/30/17 07:55 Blood Pressure 137/86 03/30/17 07:55 O2 Saturation by Pulse Oximetry 99 03/30/17 07:55 Oxygen Delivery Method Room Air Oxygen Flow Rate 0 Vital Signs Last 12 Hours Temp Pulse Resp BP Pulse Ox 03/30/17 07:55 98.2 F 95 20 137/86 99 03/30/17 04:00 98.7 F 90 20 141/75 99 03/30/17 02:00 20 03/30/17 00:00 98.7 F 90 20 129/89 99 Intake and Output 03/28/17 03/29/17 03/30/17 23:59 23:59 23:59 Intake Total 748 1920 950 Output Total 600 1350 1575 Balance 148 570 -625 General: Mild Distress (appears uncomfortable) HEENT: Other (R cheek with fullness, appears about the same, est 8-10 cm. Not especially red.) Lungs: Clear to Auscultation Bilaterally, Normal Air Movement Cardiovascular: Regular Rate and Rhythm Abdomen: Soft, Normal Bowel Sounds, Non-Distended Extremities: No Edema Skin: Other (R inguinal region with approx 5 cm induration with central whitish area necrosis suggested, some mucopurulent DC. Skin with diffuse scars, evidence of previous folliculitis, other.) Neurological: Normal Speech Psych/Mental Status: Other (quiet affect) Laboratory 03/30/17 05:30 03/30/17 05:30 03/30/17 03/29/17 03/29/17 05:30 20:58 19:20 RBC 3.27 L MCHC 31.8 L Anion Gap 18 H BUN 72 H Estimated GFR 9 L POC Capillary Glucose 110 H 107 H Calcium 6.9 L Phosphorus 6.8 H Magnesium 1.8 L 03/29/17 06:00 RBC MCHC Anion Gap BUN Estimated GFR POC Capillary Glucose Calcium Phosphorus 6.5 H Magnesium 1.7 L Laboratory Tests 03/27/17 03/29/17 03/30/17 23:25 05:30 05:30 WBC 26.2 H 28.3 H 26.9 H Current Medications: Current meds reviewed in EMR. Active Medications Acetaminophen (Tylenol) 650 mg PO Q6H PRN PRN Reason: Pain or Temperature > 100.5 F Last Admin: 03/28/17 03:16 Dose: 650 mg Acetaminophen/Hydrocodone Bitart ([place] 5/325) 1 - 2 tab PO Q4H PRN PRN Reason: Pain Last Admin: 03/30/17 08:04 Dose: 2 tab Amlodipine Besylate (Norvasc) 5 mg PO QAM [facility] Last Admin: 03/30/17 08:04 Dose: 5 mg Benzocaine/Menthol (Cepacol) 1 each PO PRN PRN PRN Reason: Sore Throat Bisacodyl (Dulcolax) 10 mg [place] DAILY PRN PRN Reason: Constipation Bisacodyl (Dulcolax) 5 mg PO DAILY PRN PRN Reason: Constipation Diphenhydramine HCl (Benadryl) 25 mg PO Q4H PRN PRN Reason: Itching Last Admin: 03/28/17 12:10 Dose: 25 mg Docusate Sodium (Colace) 100 mg PO BID [facility] Last Admin: 03/30/17 08:04 Dose: 100 mg Enoxaparin Sodium (Lovenox) 30 mg SUB-Q DAILY [facility] Last Admin: 03/30/17 08:04 Dose: 30 mg Clindamycin HCl/Dextrose 600 (mg/ Premix (D5W) 50 ml) 50 mls @ 150 mls/hr IV Q8H [facility] Last Admin: 03/30/17 08:05 Dose: 150 mls/hr Sodium Chloride (Sodium Chloride 0.9%) 100 mls @ 25 mls/hr IV PRN PRN PRN Reason: Flush Last Admin: 03/28/17 03:51 Dose: 25 mls/hr Piperacillin Sod/Tazobactam Sod 2.25 g/ NS 0.9% (MINI-BAG PLUS) 50 mls @ 100 mls/hr IV Q8H [facility] Stop: 04/02/17 02:59 Last Admin: 03/30/17 02:42 Dose: 100 mls/hr Insulin Aspart (Novolog (Dose)) 0 units SUB-Q WM/BEDTIME PRN; Protocol PRN Reason: hyperglycemia Last Admin: 03/28/17 13:40 Dose: 4 units Insulin Aspart (Novolog (Dose)) 8 units SUB-Q TIDWM [facility] Last Admin: 03/30/17 08:03 Dose: 8 units Insulin Glargine (Lantus (Dose)) 80 units SUB-Q Q24H [facility] Last Admin: 03/30/17 08:03 Dose: 80 units Lidocaine HCl (Lidocaine 1% (Pres Free)) 2 - 5 ml PF X1 PRN PRN Reason: Pain from PICC line placement Lorazepam (Ativan) 0.5 - 1 mg IV X1 PRN PRN Reason: Anxiety during PICC Placement Metoprolol Succinate (Toprol Xl) 50 mg PO DAILY [facility] Last Admin: 03/30/17 08:04 Dose: 50 mg Petrolatum/Paraffin/Mineral Oil (Blistex) 1 each TP PRN PRN PRN Reason: Dry and/or chapped lips Sodium Chloride (Normal Saline 10ml Flush) 10 - 50 ml IV PRN PRN PRN Reason: IV Flush Last Admin: 03/29/17 11:34 Dose: 10 ml Sodium Chloride (Normal Saline 10ml Flush) 10 ml IV Q8HR [facility] Last Admin: 03/30/17 08:05 Dose: 10 ml - Problems: Assessment/Plan (1) Erysipelas Status: AcuteAssessment/Plan: R cheek of face without abscess formation, but seems firmer on exam today. Cellulitis (not abscess) seen on CT. Consider for recheck imaging I&D (presumed inguinal furuncle) with Group B Strep and MSSA. On Clindamycin, Zosyn. WBC still high, not improved. (2) Abscess, groin Status: AcuteAssessment/Plan: with bacterial cellulitis, but not lymphangiitis. Appears sl improved. Anticipating PICC line placement. Draining I&D (presumed inguinal source) with Group B Strep and MSSA; on Zosyn and Clindamycin. 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 Creatinine continues to increase, Cr=7 today (4) CKD (chronic kidney disease) Qualifiers: Chronic kidney disease stage: stage 5 Qualifier Code: (N18.5) Chronic kidney disease, stage 5 Status: ChronicAssessment/Plan: Laboratory Tests 03/27/17 03/29/17 03/30/17 23:25 05:30 05:30 Creatinine 5.4 H 6.4 H D 7.0 H Estimated GFR 12 L 10 L 9 L Plan review with Dr Holcomb. VTE Prophylaxis: On enoxaparin, renally dosed Disposition: Anticipate discuss with Dr Holcomb and whether transfer indicated. Additional Comments: Spoke with sister Francisco 03/29 at [phone],
[2017-03-30] MEDS ORDERED: CALCIUM ACETATE 667 MG CAPSULE PO SCH (13:00)
[2017-03-30] MEDS ORDERED: SODIUM CHLORIDE 0.9% 1,000 ML IV SCH (13:15)
[2017-03-30 13:34] VITALS: BP 122/85
--- NOTE | 2017-03-30 13:49 | TS ---
Dawood Cohen [id number] DATE OF ADMISSION: 03/28/2017 DATE OF TRANSFER: 03/30/2017 TRANSFER DIAGNOSES: 1. Acute on chronic kidney failure with creatinine to 7.0 on 03/30/2017. 2. Type 2 diabetes mellitus with a history of poor control and severe diabetic nephropathy. 3. Acute facial cellulitis and inguinal cellulitis. 4. Methicillin sensitive Staph aureus and Group B Strep identified from wound culture. 5. Chronic anemia due to kidney disease. 6. Electrolyte disturbance associated with renal dysfunction including sodium 129, potassium 4.5, bicarbonate 14, calcium 6.9, phosphorus 6.8, magnesium 1.8. 7. Prior history of amputations of toes on right foot and distal left foot amputation. REASON FOR ADMISSION: Patient is a 36-year-old poorly controlled diabetic male originally from [place] who has had end stage renal disease and had previously refused dialysis in discussion with Dr. Holcomb. He presented with a two day history of right facial swelling associated with chills along with swelling and purulent drainage from a boil in the right groin area that started three days prior. On admission his labs showed a white count 26.2, hemoglobin 10.1, platelets 329. His sodium was 126, potassium 4.3, bicarbonate 16, BUN 65, creatinine 5.4, glucose 377, calcium 7.2. 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 Abscess was not seen. Curbside consultation regarding the draining abscess in the groin would be to monitor and allow it to continue to drain and the facial cellulitis was observed and consideration for reimaging was planned. Patient was placed on renally dosed Lovenox for venous thrombosis prophylaxis as well as Zosyn at 2.25 gm every 8 hours along with clindamycin 600 mg every 8 hours. Patient also received Lantus 80 units every 24 hours along with his blood pressure medications including amlodipine. Patient maintained stable vital signs with significant fevers noted and his blood pressures remained generally well controlled up from a low of 99/63 on 03/28 to 137/86 on 03/30/2017. His face demonstrated continued swelling, but worsening redness, swelling, streaking changes although, a performance was noted near the right cheek bone. The inguinal area was cultured and showed Methicillin Sensitive Staph aureus and Group B Strep. The facial lesions did not demonstrate any area that was culturable. Despite relatively good intake patient had a worsening of his creatinine from 5.4 on admission to 6.4 on 03/29 to 7.0 on 03/30. His white count remained elevated at 26.9 on 03/30/2017. His hemoglobin edge slightly down to 9.1. Conservation carried out with patient and then later with Dr. Holcomb. Dr. Holcomb had indicated that patient had previously refused dialysis, but at this time patient wishes to pursue dialysis. Special effort was made to explain the need for ongoing consistent follow up for dialysis and he indicated he would do this. Call was made back to Dr. Holcomb and she graciously accepted this patient, but requested that hospitalist service help manage his other problems including cellulitis and potential abscess formation. Dr. Katz accepted this patient for [facility]. Patient is anticipated to be transferred over to [place]. CURRENT MEDICATIONS: 1. Acetaminophen 650 mg by mouth every 6 hours. 2. [place] 5/325 one to two every 4 hours as needed. 3. Amlodipine 5 mg every morning. 4. Cepacol as needed. 5. Dulcolax 5 mg by mouth daily as needed and 10 mg by mouth daily as needed. 6. Clindamycin 600 mg IV every 8 hours. 7. Benadryl 25 mg by mouth every 4 hours as needed. 8. Docusate sodium 100 mg by mouth twice daily. 9. Enoxaparin 30 mg subcutaneously daily. 10. Lantus 80 units subcutaneously every 24 hours. 11. NovoLog 8 units three times daily with meals plus high dose sliding scale. 12. Metoprolol succinate 50 mg by mouth daily scheduled. 13. Blistex topically as needed. 14. Zosyn 2.25 gm IV every 8 hours. PHYSICAL EXAMINATION: VITAL SIGNS: At the time patient was accepted showed temperature 98.2, pulse 95, blood pressure 137/86, respirations 20, 99% saturation on room air. GENERAL: The patient is alert and accepting transfer and specifically had choices reviewed for going dialysis and staying her versus going to [place] to review and consider dialysis. He chooses to go to [place] for dialysis. This was also reviewed with his sister who felt the same way. JOB: CC: Dr. Holcomb, hole digger Dr. Katz, the hospitalist admitting Dr. Shirin Orozco
[2017-03-30] MEDS ORDERED: SODIUM BICARBONATE 650 MG TABLET PO SCH (15:00)
== END 2017-03-30 17:04 | disposition short-term general hospital (02) | DRG 699 ==
LOC: ED 21:32 → MS 03-28 00:55
PROVIDERS: ADMIT Family Medicine; ATTEND Family Medicine
DX: E11.22 Type 2 diabetes mellitus with diabetic chronic kidney disease (principal); L02.214 Cutaneous abscess of groin; I12.0 Hypertensive chronic kidney disease with stage 5 chronic kidney disease or end stage renal disease; A46 Erysipelas; B96.89 Other specified bacterial agents as the cause of diseases classified elsewhere; E11.65 Type 2 diabetes mellitus with hyperglycemia; N18.5 Chronic kidney disease, stage 5; Z91.14 Patient's other noncompliance with medication regimen; K02.9 Dental caries, unspecified; J34.2 Deviated nasal septum; E11.21 Type 2 diabetes mellitus with diabetic nephropathy; Z79.4 Long term (current) use of insulin; B95.62 Methicillin resistant Staphylococcus aureus infection as the cause of diseases classified elsewhere; D63.1 Anemia in chronic kidney disease; E87.8 Other disorders of electrolyte and fluid balance, not elsewhere classified